=== PATIENT | female | born 1970 | race Caucasian/White ===

== ENCOUNTER 2019-04-15 16:45 | Emergency (ER) | payer BC, SELFPAY ==
[2019-04-15 16:58] VITALS: BP 123/64; PULSE 89; RESP 18; TEMP 37.4; O2SAT 100
--- NOTE | 2019-04-15 16:58 | ED.URI ---
HPI - URI/Sore Throat General Chief Complaint: Upper Respiratory Infection Stated Complaint: sinus pressure/drainage/right eye irritation Time Seen by Provider: 04/15/19 16:59 Source: patient and RN notes reviewed History of Present Illness HPI Narrative: Patient is a 48-year-old female presents the urgent care with complaints of sinus pressure, drainage, mild sore throat, right eye irritation and matting, headache, chills, sweats. Patient states that her some of her symptoms have been ongoing for 1 week however she woke up today with yellow matting to the right eye. Patient denies any known fever, nausea, vomiting. Has been using Debrox to the ears, Tylenol, decongestant, Aleve. No other acute complaints. No acute distress noted. Patient read the plan of care. Related Data Home Medications Medication Instructions Recorded Confirmed fluoxetine 20 mg PO DAILY 04/15/19 04/15/19 sumatriptan succinate 50 mg PO ONCE PRN 04/15/19 04/15/19 Allergies Allergy/AdvReac Type Severity Reaction Status Date / Time No Known Allergies Allergy Verified 04/15/19 17:03 Review of Systems Review of Systems: Narrative: CONSTITUTIONAL: Reports of chills and sweats EYES: Denies visual changes. Reports of right eye redness, irritation, discharge, matting ENT: Reports of sinus pressure/congestion, rhinorrhea, mild sore throat CARDIOVASCULAR: Denies chest pain, palpitations, or edema. RESPIRATORY: Denies cough or dyspnea. GASTROINTESTINAL: Denies abdominal pain, nausea, vomiting, or diarrhea. GENITOURINARY: Denies dysuria or hematuria. SKIN: Denies rash or itching. MUSCULOSKELETAL: Denies back pain, joint pain, or myalgia. NEUROLOGIC: Reports of headache All other systems reviewed are negative, except as documented in HPI. PMFSH Comments At the time of my signature, I reviewed and agree with the nursing past medical, surgical, social, and family history. There is no relevant family history pertinent to the patient complaint. Exam Narrative: Exam Narrative: GENERAL: This is a well-nourished, well-developed patient, in no apparent distress. HEAD: normocephalic, atraumatic. EYES: PERRL. Sclera clear/white. Vision is grossly intact. Mild injection to the right conjunctivea with clear drainage EARS: External ears normal, auditory canals clear and without drainage, unable to visualize left TM due to cerumen impaction, right TMs normal without perforation. Hearing grossly intact. NOSE: External nose normal with no obvious nasal discharge, mild bilateral erythemic nares with clear rhinorrhea. THROAT: Mucous membranes moist, mild erythema noted posterior oropharynx with mild postnasal drainage NECK: Neck supple, non-tender without lymphadenopathy CARDIOVASCULAR: Regular rate and rhythm without murmurs, gallops, or rubs. RESPIRATORY: Clear to auscultation. Breath sounds equal bilaterally. No wheezes, rales, or rhonchi. SKIN: warm, intact with no suspicious lesions or rash, good texture and turgor. NEURO: awake, alert, and oriented to person, place and time. There were no obvious focal neurologic abnormalities. EXTREMITIES: No clubbing, cyanosis, or edema. Course Vital Signs Vital signs: Vital Signs Temperature 99.4 F 04/15/19 16:58 Pulse Rate 89 04/15/19 16:58 Respiratory Rate 18 04/15/19 16:58 Blood Pressure 123/64 04/15/19 16:58 Pulse Oximetry 100 04/15/19 16:58 Temperature 99.4 F 04/15/19 16:58 Pulse Rate 89 04/15/19 16:58 Respiratory Rate 18 04/15/19 16:58 Blood Pressure 123/64 04/15/19 16:58 Pulse Oximetry 100 04/15/19 16:58 Reviewed MDM - URI/Sore Throat MDM Narrative Medical decision making narrative: Reviewed lab results with the patient. She is aware that flu swab was negative. Advised the patient to treat symptoms with Claritin and Flonase as directed. Complete steroid regimen as prescribed. Use eyedrops to the right eye as directed. Increase fluids and rest. Use humidifier at night. Use Tylenol
== END 2019-04-15 17:30 | disposition home or self-care (01) ==
PROVIDERS: Emergency Provider Nurse Practitioner Family; PCP Family Medicine
DX: J06.9 Acute upper respiratory infection, unspecified (principal); H10.9 Unspecified conjunctivitis; F32.9 Major depressive disorder, single episode, unspecified
CPT/HCPCS: 87804; 99203; G0463

== ENCOUNTER → 2020-11-29 17:54 | Outpatient (CLI) | payer BC, SELFPAY ==
--- NOTE | ~2020-11-29 | DEXA_ITS ---
Bone Density Report Name: Laurita Shaffer Age: 50 Sex: Female Ethnicity: White Date of : 1970 Indication: postmenopausal; screening for osteoporosis; Referring Provider: Tyra, Aaliyah Study: Bone densitometry was performed. Exam Date: November 29, 2020 Accession number: [id number] Bone Density: Region BMD T-score Z-score Classification AP Spine (L1-L4) 1.141 0.9 1.8 Normal Femoral Neck (Left) 0.908 0.5 1.4 Normal Total Hip (Left) 1.079 1.1 1.7 Normal Femoral Neck (Right) 0.957 1.0 1.9 Normal Total Hip (Right) 1.059 1.0 1.5 Normal Total Hip Mean 1.069 1.1 1.6 Normal World Health Organization criteria for BMD impression classify patients as: Normal (T-score at or above -1.0), Osteopenia (T-score between -1.0 and -2.5), or Osteoporosis (T-score at or below -2.5). 10-year Fracture Risk: FRAX not reported because: All T-scores for Spine Total, Hip Total, Femoral Neck at or above -1.0 Clinical Information Provided by Patient: Smokes Patient maximum height was 62.5 Menopause Age: 48 No regular weight bearing exercise Drinks caffeinated beverages Onset of menses at age 11 Number of children 3 Impression: The patient has normal bone mass. The patient has risk factors, including: smoking. Discussion: BONE DENSITY IS ABOVE THE MINIMUM DESIRABLE LEVEL AT ALL SKELETAL SITES TESTED. This patient?s bone mineral density is above the minimum desirable level (T-score -1.0 or better) at all sites measured. The patient should follow a healthful lifestyle (good nutrition with adequate calcium and vitamin D, and appropriate weight-bearing exercise). Follow-Up: Consider repeating this study in 5 years or sooner if there is some new clinical indication. Reported by: [facility] on 11/29/2020 6:37:00 PM. Reviewed, dictated and finalized at location AÁlvaro PHILLIP
--- NOTE | ~2020-11-29 | MM_ITS ---
EXAMINATION: MM screening davy BI w alma HISTORY: Screening mammogram TECHNIQUE: Craniocaudal and mediolateral oblique 3-D tomosynthesis images were obtained and synthetic 2-D images were generated. CAD analysis was submitted and interpreted. COMPARISON: No prior mammogram is available for comparison at this institution. BREAST PARENCHYMAL COMPOSITION: There are scattered areas of fibroglandular density. FINDINGS: RIGHT BREAST: An asymmetry is present in the middle third of the slightly outer breast 6 cm from the nipple on the craniocaudal view. LEFT BREAST: An asymmetry is present in the middle/posterior third of the slightly inner breast 6 cm from the nipple on the craniocaudal view. IMPRESSION: 1. Bilateral breast asymmetries which may represent the patient's baseline however no comparison is c urrently available. 2. Comparison with prior mammograms is necessary. BI-RADS Category 0: Incomplete: Needs comparison with prior mammograms. Reviewed, dictated and finalized at location A. IMPRESSION: 1. Bilateral breast asymmetries which may represent the patient's baseline mora jorge no comparison is currently available. 2. Comparison with prior mammograms is necessary. BI-RADS Category 0: Incomplete: Needs comparison with prior mammograms.
== END ==
PROVIDERS: Visit Provider Nurse Practitioner
DX: Z12.31 Encounter for screening mammogram for malignant neoplasm of breast (principal); Z78.0 Asymptomatic menopausal state; R92.8 Other abnormal and inconclusive findings on diagnostic imaging of breast
CPT/HCPCS: 77063; 77067; 77080

== ENCOUNTER → 2021-01-15 07:50 | Outpatient (CLI) | payer BC, SELFPAY ==
--- NOTE | ~2021-01-15 | MMUS_ITS ---
EXAMINATION: MM diagnostic davy RT w alma, US breast RT limited HISTORY: Right breast asymmetry on screening mammogram TECHNIQUE: Additional 3-D tomosynthesis images of the right breast were performed and synthetic 2-D i mages were generated. CAD analysis was submitted and interpreted. High resolution limited right breas t ultrasound was performed. COMPARISON: 11/29/2020, 08/22/2017, 08/05/2012 BREAST PARENCHYMAL COMPOSITION: There are scattered areas of fibroglandular density. FINDINGS: MAMMOGRAPHIC FINDINGS: There is a return to baseline fibroglandular appearance with spot compression of the breast in th e area questioned on screening mammogram. ULTRASOUND: There is a questionable 3 mm hypoechoic mass at the 8:00 location 6 cm from the nipple although the m ass is not as prominent with the provided cine images. There is a questionable 5 mm hypoechoic mass a t the 10:30 location 4.5 cm from the nipple. Small cysts are noted in the outer breast. IMPRESSION: 1. Possible right breast masses on background of dense breast tissue. 2. Recommend 6 month follow-up right diagnostic mammogram and ultrasound. BI-RADS category 3, probably benign findings. Reviewed, dictated and finalized at location A. SUPERVISOR IMPRESSION: 1. Possible right breast masses on background of dense breast tissue. 2. Recommend 6 month follow-up right diagnostic mammogram and ultrasound. BI-RADS category 3, probably benign findings.
== END ==
PROVIDERS: Visit Provider Obstetrics & Gynecology Gynecology
DX: N63.15 Unspecified lump in the right breast, overlapping quadrants (principal)
CPT/HCPCS: 76642; 77061; 77065; G0279

== ENCOUNTER → 2021-07-24 14:31 | Outpatient (CLI) | payer BC, SELFPAY ==
--- NOTE | ~2021-07-24 | MMUS_ITS ---
EXAMINATION: MM diagnostic davy RT w alma, US breast RT limited HISTORY: Six-month follow-up of possible right breast masses including 3 mm hypoechoic mass at 8:00 6 cm from nipple and questionable 5 mm hypoechoic mass at 10:30 o'clock 4.5 cm from nipple (01/15/2021 Limited right breast ultrasound findings) TECHNIQUE: ML, MLO and CC full field and spot 3-D tomosynthesis images of the right breast were perfo rmed and synthetic 2-D images were generated. CAD analysis was submitted and interpreted. High resolu tion targeted right breast ultrasound at 8:00 and 10:30 o'clock was performed. COMPARISON: 01/15/2021 diagnostic right mammogram and limited right breast ultrasound 11/29/2020 bilateral screening mammogram 08/22/2017 [facility] bilateral screening mammogram BREAST PARENCHYMAL COMPOSITION: The breasts are heterogeneously dense, which may obscure small masses . FINDINGS: MAMMOGRAPHIC FINDINGS: There is a biopsy marker in the posterior outer mid right breast; history of prior benign right breas t biopsy. No interval suspicious mass or new architectural distortion or any malignant calcification, skin thic kening or retraction is evident. No significant new or developing density is noted compared to 2020 or 08/22/2017 ULTRASOUND: 8:00 6 cm from nipple: 3.4 x 3.3 x 3.1 mm irregular hypoechoic area with posterior shadowing. This is suspicious due to irregular margins in the posterior shadowing. Ultrasound-guided biopsy is recommen ded.. 10:00 3 cm from nipple: 4.1 x 3.2 x 5.3 mm mm oval parallel circumscribed sonolucency, without mechanical intern al vascularity or posterior shadowing, likely a small cyst 10-11:00 4.5 cm from nipple: 3.5 x 2.1 x 3.2 mm hypoechoic lesion with some posterior shadowing; ultr asound-guided biopsy is recommended IMPRESSION: 1. Hypoechoic posterior shadowing small lesions of right breast at 8:00 6 cm from nipple and 10-11:00 4.5 cm from nipple 2. Ultrasound-guided biopsy of the 8:00 and 10-11:00 lesions is recommended BI-RADS category 4, suspicious findings. Dr. Duron telephoned the report and ultrasound guided biopsy recommendation for right breast 8:00 and 10-o'clock o'clock lesions to Rylie, Media Strategist. Reviewed, dictated and finalized at location A. IMPRESSION: 1. Hypoechoic posterior shadowing small lesions of right breast at 8:00 6 cm fr om nipple and 10-11:00 4.5 cm from nipple 2. Ultrasound-guided biopsy of the 8:00 and 10-11:00 lesions is recommended BI-RADS category 4, suspicious findings. Dr. Duron telephoned the report and ultrasound guided biopsy recommendation for right breast 8:00 and 10-o'clock o'clock lesions to Rylie Media Strategist. IMPRESSION: 1. Hypoechoic posterior shadowing small lesions of right breast at 8:00 6 cm fr om nipple and 10-11:00 4.5 cm from nipple 2. Ultrasound-guided biopsy of the 8:00 and 10-11:00 lesions is recommended BI-RADS category 4, suspicious findings. Dr. Duron telephoned the report and ultrasound guided biopsy recommendation for right breast 8:00 and 10-o'clock o'clock lesions to Rylie, Media Strategist.
== END ==
PROVIDERS: Visit Provider Obstetrics & Gynecology Gynecology
DX: R92.8 Other abnormal and inconclusive findings on diagnostic imaging of breast (principal)
CPT/HCPCS: 76642; 77061; 77065; G0279

== ENCOUNTER 2021-09-27 10:44 | Emergency (ER) | payer BC, SELFPAY ==
--- NOTE | 2021-09-27 10:53 | ED.SKABFB ---
HPI - Skin/Abscess/Foreign Bdy General Chief complaint: Skin/Abscess/Foreign Body Stated complaint: Skin Irritation Groin Arean Time Seen by Provider: 09/27/21 10:53 Source: patient Mode of arrival: ambulatory Limitations: no limitations History of Present Illness HPI narrative: 51 yo F presents with c/o red, swollen bump to suprapubic region for approx. 1 wk. Started to drain today. Reports painful. No fever/chills. Does not shave pubic area. No hx of staph infection. All systems reviewed and negative except as noted above. Related Data Home Medications Medication Instructions Recorded Confirmed fluoxetine 20 mg capsule 20 mg PO DAILY 04/15/19 09/27/21 sumatriptan succinate 50 mg tablet 50 mg PO ONCE PRN Migraine Headache 04/15/19 09/27/21 Allergies Allergy/AdvReac Type Severity Reaction Status Date / Time No Known Allergies Allergy Verified 09/27/21 10:46 Review of Systems Review of Systems: CONSTITUTIONAL: Denies fever, chills, or sweats. EYES: Denies visual changes, redness, or discharge. ENT: Denies rhinorrhea, congestion, sore throat, or otalgia. CARDIOVASCULAR: Denies chest pain, palpitations, or edema. RESPIRATORY: Denies cough or dyspnea. GASTROINTESTINAL: Denies abdominal pain, nausea, vomiting, or diarrhea. GENITOURINARY: Denies dysuria or hematuria. SKIN: Denies rash or itching. Reports red, swollen painful bump to suprapubic region. MUSCULOSKELETAL: Denies back pain, joint pain, or myalgia. NEUROLOGIC: Denies headache, numbness, or weakness. PSYCHIATRIC: Denies anxiety or depression. All other systems reviewed are negative, except as documented in HPI. PMFSH Comments At time of signature, agree with nursing past medical, surgical, social and family history. There is no relevant family history pertinent to the presenting complaint. Exam Narrative: GENERAL: This is a well-nourished, well-developed patient, in no apparent distress. HEAD: normocephalic, atraumatic. EYES: PERRL. Sclera clear/white. Vision is grossly intact. EARS: External ears normal NOSE: External nose normal NECK: Neck supple, non-tender without lymphadenopathy, masses or thyromegaly. CARDIOVASCULAR: Regular rate and rhythm without murmurs, gallops, or rubs. RESPIRATORY: Clear to auscultation. Breath sounds equal bilaterally. No wheezes, rales, or rhonchi. SKIN: warm, Dry, intact with no suspicious lesions or rash, good texture and turgor. Abscess to suprapubic region, approximately 5 cm diameter. Erythematous and tender on palpation. NEURO: awake, alert, and oriented to person, place and time. There were no obvious focal neurologic abnormalities. EXTREMITIES: No joint tenderness, effusion, or edema noted. GI: Abdomen image: 1. 5 cm draining abscess. Course Course Level of Care: Express Care Visit Vital Signs Vital signs: Vital Signs Temperature 36.4 C L 09/27/21 10:55 Pulse Rate 99 09/27/21 10:55 Respiratory Rate 18 09/27/21 10:55 Blood Pressure 128/85 09/27/21 10:55 Pulse Oximetry 96 09/27/21 10:55 Oxygen Delivery Room Air 09/27/21 10:55 Temperature 36.4 C L 09/27/21 10:55 Pulse Rate 99 09/27/21 10:55 Respiratory Rate 18 09/27/21 10:55 Blood Pressure 128/85 09/27/21 10:55 Pulse Oximetry 96 09/27/21 10:55 Oxygen Delivery Room Air 09/27/21 10:55 Reviewed MDM - Skin/Abscess/Foreign Bdy MDM Narrative Medical decision making narrative: Patient is aware of diagnosis, understands and agrees to treatment plan. Anticipatory guidance given. Patient agrees to follow-up as directed and is aware of reasons to seek care at the emergency department. Portions of this record may have been created with voice recognition software Patient has draining abscess to suprapubic region. Was able to further manually drain a purulent, bloody drainage. Prescribed clindamycin. Recommend she continue warm compresses and manually drain. Discharge Plan Discharge Clinical Impression: Absce
[2021-09-27 10:55] VITALS: BP 128/85; PULSE 99; RESP 18; TEMP 36.4; O2SAT 96
== END 2021-09-27 11:05 | disposition home or self-care (01) ==
PROVIDERS: Emergency Provider Nurse Practitioner Family
DX: N73.2 Unspecified parametritis and pelvic cellulitis (principal); F32.A Depression, unspecified; Z86.16 Personal history of COVID-19
CPT/HCPCS: 99213; G0463

== ENCOUNTER 2023-05-16 15:50 | Outpatient (CLI) | payer BC, SELFPAY ==
--- NOTE | ~2023-05-16 | MM_ITS ---
EXAMINATION: MM screening [facility] BI w alma HISTORY: Screening TECHNIQUE: Craniocaudal and mediolateral oblique 3-D tomosynthesis images were obtained and synthetic 2-D images were generated. CAD analysis was submitted and interpreted. COMPARISON: Comparison to multiple prior studies sequentially, with oldest reviewed study dated 08/22. BREAST PARENCHYMAL COMPOSITION: Not dense: There are scattered areas of fibroglandular density. FINDINGS: There is no evidence of suspicious mass, calcification, or architectural distortion to sugg est malignancy in either breast. There has been no suspicious interval change. IMPRESSION: 1. No mammographic evidence of malignancy. 2. Recommend routine screening mammography in one year. BI-RADS Category 1: Negative Reviewed, dictated and finalized at location A.
== END 2023-05-16 15:51 ==
LOC: MICIMG 15:50
PROVIDERS: PCP Nurse Practitioner; Visit Provider Nurse Practitioner
DX: Z12.31 Encounter for screening mammogram for malignant neoplasm of breast (principal)
CPT/HCPCS: 77063; 77067